=== PATIENT | female | born 1975 | race American Indian/Alaskan Native ===

== ENCOUNTER 2018-12-21 02:15 | Emergency (ER) | payer BC, OTHER ==
[2018-12-21 02:34] VITALS: BP 129/82
--- NOTE | 2018-12-21 03:25 | XRay Report ---
PROCEDURE: XR FOOT 2V LT TECHNIQUE: AP and lateral views of the left foot are submitted. HISTORY: LEFT 5 TOE PAIN COMPARISONS: None FINDINGS: There is no evidence of fracture or soft tissue injury. In particular, the fifth toe is unremarkable. IMPRESSION: Within normal limits.. This document is electronically signed by Isac Davenport MD., December 21 2018 03:22:49 AM ET
--- NOTE | 2018-12-21 04:29 | Emergency Department Report ---
ED Lower Extremity HPI - General Chief Complaint: Extremity Injury, Lower Stated Complaint: LEFT FOOT PAIN SWELLING FOR 2DAYS Time Seen by Provider: 12/21/18 04:02 Source: patient Mode of arrival: Ambulatory Limitations: No Limitations - History of Present Illness MD Complaint: foot injury (43-year-old female was walking and hit her left foot on the occiput and causing pain to the fifth toes been dull and throbbing since then causing her issues when wearing shoes ambulating presents emergency department for evaluation of the toe as she is worried about a fracture. She denies any prior injury.) -: week(s) Type of Injury: blunt Place: home Severity: mild Improves With: nothing Worsens With: weight bearing, palpation Context: direct blow Associated Symptoms: denies: able to partially bear weight, ambulatory - Related Data Previous Rx's Medication Instructions Recorded Last Taken Type Acetaminophen/Codeine 1 tab PO Q6H PRN #20 tab 10/24/14 Unknown Rx [Acetaminophen-Codeine #3 TAB] Allergies Allergy/AdvReac Type Severity Reaction Status Date / Time Latex, Natural Rubber Allergy Rash Verified 10/24/14 08:30 ED Review of Systems ROS: Stated complaint: LEFT FOOT PAIN SWELLING FOR 2DAYS Other details as noted in HPI Constitutional: denies: chills, fever Eyes: denies: eye pain, eye discharge, vision change ENT: denies: ear pain, throat pain Respiratory: denies: cough, shortness of breath, wheezing Cardiovascular: denies: chest pain, palpitations Endocrine: no symptoms reported Gastrointestinal: denies: abdominal pain, nausea, diarrhea Genitourinary: denies: urgency, dysuria, discharge Musculoskeletal: denies: back pain, joint swelling, arthralgia Skin: denies: rash, lesions Neurological: denies: headache, weakness, paresthesias Psychiatric: denies: anxiety, depression Hematological/Lymphatic: denies: easy bleeding, easy bruising ED Past Medical Hx - Past Medical History Additional medical history: gestation diabetes, ANEMIA, VITAMIN D DEFICIENCY - Surgical History Additional Surgical History: etopic 2005, tubAL ligation 2004 - Social History Smoking Status: Never Smoker Substance Use Type: None - Medications Home Medications: Home Medications Medication Instructions Recorded Confirmed Last Taken Type Acetaminophen/Codeine 1 tab PO Q6H PRN #20 tab 10/24/14 Unknown Rx [Acetaminophen-Codeine #3 TAB] ED Physical Exam - General Limitations: No Limitations General appearance: alert, in no apparent distress - Head Head exam: Present: atraumatic, normocephalic - Eye Eye exam: Present: normal appearance, PERRL, EOMI Pupils: Present: normal accommodation - ENT ENT exam: Present: normal exam, normal orophraynx, mucous membranes moist, TM's normal bilaterally - Neck Neck exam: Present: normal inspection, tenderness, full ROM - Respiratory Respiratory exam: Present: normal lung sounds bilaterally. Absent: respiratory distress - Cardiovascular Cardiovascular Exam: Present: regular rate, normal rhythm. Absent: systolic murmur, diastolic murmur, rubs, gallop - GI/Abdominal GI/Abdominal exam: Present: soft, normal bowel sounds - Extremities Exam Extremities exam: Present: normal inspection, tenderness, normal capillary refill, other (there is tenderness to the fifth toe with palpation with mild swelling. No discoloration. Pulses 2+2 dorsalis pedis and posterior tibialis Tapia's test is negative. No heel pain. Toenail is intact) - Back Exam Back exam: Present: normal inspection, full ROM - Neurological Exam Neurological exam: Present: alert, oriented X3 - Psychiatric Psychiatric exam: Present: normal affect, normal mood - Skin Skin exam: Present: warm, dry, intact, normal color. Absent: rash ED Course Vital Signs 12/21/18 12/21/18 02:25 02:51 Temperature 98.5 F 98.1 F Pulse Rate 73 76 Respiratory 16 16 Rate Blood Pressure 129/82 129/82 O2 Sat by Pulse 98 98 Oximetry ED Lower Extremity MDM - Radiology Data Radiology results: report reviewed (negative findings) Critical care attestation.: If time is entered above; I have spent that time in minutes in the direct care of this critically ill patient, excluding procedure time. ED Disposition Clinical Impression: Contusion of toe of left foot Disposition: DC-01 TO HOME OR SELFCARE Is pt being admited?: No Does the pt Need Aspirin: No Condition: Stable Instructions: Foot Contusion (ED), Ice Pack Application (ED) Referrals: JAREK HERRON MD [Primary Care Provider] - 3-5 Days
== END 2018-12-21 04:35 | disposition home or self-care (01) ==
LOC: ED 02:15
DX: S90.122A Contusion of left lesser toe(s) without damage to nail, initial encounter (principal); Z86.2 Personal history of diseases of the blood and blood-forming organs and certain disorders involving the immune mechanism; Z98.51 Tubal ligation status; Z91.040 Latex allergy status; W22.8XXA Striking against or struck by other objects, initial encounter; Y93.01 Activity, walking, marching and hiking; Y92.098 Other place in other non-institutional residence as the place of occurrence of the external cause; Y99.8 Other external cause status
CPT/HCPCS: 99283